=== PATIENT | female | born 1945 | race Asian ===

== ENCOUNTER 2022-01-07 19:36 | Outpatient (CLI) | payer MEDICARE, MEDICAID, SELFPAY | END 2022-01-07 19:37 | disposition home or self-care (01) | LOC: AMB 01-24 20:49 | PROVIDERS: PCP Family Medicine; Visit Provider Family Medicine | DX: R53.1 Weakness (principal); E11.65 Type 2 diabetes mellitus with hyperglycemia; I10 Essential (primary) hypertension; Z91.81 History of falling | CPT/HCPCS: A0425; A0427 ==